=== PATIENT | female | born 2005 | race African-American/Black ===

== ENCOUNTER 2024-05-25 09:45 | Emergency (ER) | payer OTHER ==
[~2024-05-25] VITALS: Ht 162.6 cm; Wt 116.2 kg
[2024-05-25 10:11] VITALS: BP 136/92; PULSE 88; RESP 16; TEMP 98; O2SAT 100
[2024-05-25] MEDS ORDERED: OLOP0.1S7 OP (10:22)
[2024-05-25] MEDS ORDERED: LACT10SO3 PO (10:22)
[2024-05-25] MEDS ORDERED: PRED20TA2 PO (10:22)
== END 2024-05-25 10:28 | disposition home or self-care (01) ==
LOC: ER 09:45
DX: H10.13 Acute atopic conjunctivitis, bilateral (principal); K59.00 Constipation, unspecified; Z79.899 Other long term (current) drug therapy

== ENCOUNTER 2024-06-19 08:22 | Emergency (ER) | payer MEDICAID, OTHER ==
[~2024-06-19] VITALS: Ht 167.6 cm; Wt 114.2 kg
[~2024-06-19 08:22] MED LIST: LACT10SO3 PO; OLOP0.1S7 OP; PRED20TA2 PO
[2024-06-19 08:54] VITALS: BP 120/70; PULSE 86; RESP 18; TEMP 97.4; O2SAT 100
[2024-06-19] MEDS ORDERED: AUG875T PO (09:07)
[2024-06-19] MEDS ORDERED: POLY335015 PO (09:07)
[2024-06-19] MEDS ORDERED: SIME1CAP12 PO (09:07)
[2024-06-19] MEDS ORDERED: FAMO20TA10 PO (09:07)
[2024-06-19] MEDS ORDERED: POLY1DRO14 OP (09:07)
== END 2024-06-19 09:24 | disposition home or self-care (01) ==
LOC: ER 08:22
DX: K59.00 Constipation, unspecified (principal); R10.13 Epigastric pain

== ENCOUNTER 2024-08-02 07:32 | Emergency (ER) | payer MEDICAID ==
[~2024-08-02] VITALS: Ht 167.6 cm; Wt 78.0 kg
[~2024-08-02 07:32] MED LIST changes: +AUG875T PO; +FAMO20TA10 PO; +POLY1DRO14 OP; +POLY335015 PO; +SIME1CAP12 PO
[2024-08-02 08:14] VITALS: BP 125/67; PULSE 107; RESP 18; TEMP 98.2; O2SAT 100
--- NOTE | 2024-08-02 08:20 | ED.PDOC ---
IT SECURITY ADMINISTRATOR HPI Comments A 18 YEAR OLD FEMALE PRESENTS TO THE ED WITH COMPLAINT OF VAGINAL DISCHARGE. PATIENT STATES SHE HAS BEEN EXPERIENCING VAGINAL DISCHARGE THAT IS WHITE IN COLOR AND PAINFUL URINATION FOR THE PAST 1 WEEK. PATIENT DENIES HEMATURIA, FLANK PAIN, FEVER, CHILLS, SHORTNESS OF BREATH, CHEST PAIN, ABDOMINAL PAIN, NAUSEA, VOMITING, HEADACHE, OR OTHER COMPLAINTS. NO OTHER SYMPTOMS OR MODIFYING FACTORS AT THIS TIME. PATIENT IS ALERT, ORIENTED X 4, AND HAS STEADY GAIT. Chief Complaint: Vaginal Discharge Reviewed Notes: Nurses Notes, Medications, Allergies Allergies: Coded Allergies: NO KNOWN ALLERGIES (Unverified , 05/25/24) Home Meds Active Scripts Polyethylene Glycol-Propylene (Lubricating Eye Drops 0.4-0.3 %) 1 Elliott Elliott, 1 ELLIOTT OP UD for 30 Days, #1 KIT 0 Refills Prov:ROBBIE ROOT NP 06/19/24 Amoxicillin & Pot Clavulanate (AUGMENTIN TABLET) 875 Mg Tb, 875 MG PO BID for 7 Days, #14 TAB 0 Refills Prov:ROBBIE ROOT NP 06/19/24 Polyethylene Glycol 3350 (Miralax) 17 Gm Pow, 17 GM PO BID for 30 Days, #1 KIT 0 Refills Prov:ROBBIE ROOT NP 06/19/24 Famotidine (PEPCID TABLET) 20 Mg Tb, 1 TAB PO BIDP PRN for 30 Days, #60 TAB 0 Refills Prov:IVETTROBBIE F COMPUTER SCIENTIST 06/19/24 Simethicone (SIMETHICONE) 180 Mg Cap, 180 MG PO UD for 10 Days, #40 CAP 0 Refills Prov:ROBBIE ROOT NP 06/19/24 Lactulose (Lactulose) 10 Gm/15 Ml [place], 30 ML PO BID, #180 ML Prov:PRESLEY HILL 05/25/24 Prednisone (Prednisone) 20 Mg Tab, 60 MG PO DAILY for 6 Days, #18 TAB Prov:PRESLEY HILL 05/25/24 Olopatadine HCl (Pataday) 0.1 % [place], 1 DROP OP DAILY, #5 ML Prov:PRESLEY HILL 05/25/24 Information Source: Patient Mode of Arrival: Ambulatory Timing: Days Prehospital treatment: None Severity: Moderate Vaginal Discharge: White Vaginal Lesions: None Vaginal Mass: None Onset Of Mass/Bleeding: Spontaneous Sexual Activity: Neither Last Consensual [place]: Unknown Control: None Blood Type: Unknown Symptoms of Possible : None Associated Signs and Symptoms: Vaginal Discharge Past Medical History PAST MEDICAL HISTORY: Denies Surgical History: Denies all surgeries VETERINARY TECHNOLOGY INSTRUCTOR History: No Pertinent VETERINARY TECHNOLOGY INSTRUCTOR History Family History Family History: Reviewed,noncontributory to illness Social History Smoker: Non-Smoker Alcohol: Denies ETOH Use Drugs: Denies Drug Use Lives In: Home Constitutional: denies: chills, diaphoresis, fatigue, fever, malaise, sweats, weakness, others EENTM: denies: blurred vision, double vision, ear bleeding, ear discharge, ear drainage, ear pain, ear ringing, eye pain, eye redness, hearing loss, mouth pain, mouth swelling, nasal discharge, nose bleeding, nose congestion, nose pain, photophobia, tearing, throat pain, throat swelling, voice changes, others Respiratory: denies: cough, hemoptysis, orthopnea, SOB at rest, shortness of breath, SOB with excertion, stridor, wheezing, others Cardiovascular: denies: chest pain, dizzy spells, diaphoresis, Dyspnea on exertion, edema, irregular heart beat, left arm pain, lightheadedness, palpitations, PND, syncope, others Gastrointestinal: denies: abdomen distended, abdominal pain, blood streaked bowels, constipated, diarrhea, dysphagia, difficulty swallowing, hematemesis, melena, nausea, poor appetite, poor fluid intake, rectal bleeding, rectal pain, vomiting, others Genitourinary: reports: burning, dysuria, vagina discharge; denies: abnormal vagina bleeding, dyspareunia, flank pain, frequency, hematuria, incontinence, pain, , urgency, others Neurological: denies: dizziness, fainting, headache, left sided numbness, left sided weakness, numbness, paresthesia, pre-existing deficit, right sided numbness, right sided weakness, seizure, speech problems, tingling, tremors, weakness, others Musculoskeletal: denies: back pain, gout, joint pain, joint swelling, muscle pain, muscle stiffness, neck pain, others Integumetry: denies: bruises, change in color, change in hair/nails, dryness, laceration, lesions, lumps, rash, wounds, others Allergic/Immunocompromised: denies: Difficulty Healing, Frequent Infections, Hives, Itching, others Hematologic/Lymphatic: denies: anemia, blood clots, easy bleeding, easy bruising, swollen glands, others Endocrine: denies: excessive hunger, excessive sweating, excessive thirst, excessive urination, flushing, intolerance to cold, intolerance to heat, unexplained weight gain, unexplained weight loss, others Psychiatric: denies: anxiety, bipolar disorder, depression, hopeless, panic disorder, schizophrenia, sleepless, suicidal, others All Other Systems: Reviewed and Negative Was a procedure done? Was a procedure done?: No Differential Diagnosis (VETERINARY TECHNOLOGY INSTRUCTOR) Vaginal Bleeding: N/A Mass / Lesion: N/A Vaginal Discharge: UTI, Vaginitis - Bacterial, Vaginitis - Candidal, Vaginitis - Trichomonas X-Ray, Labs, Meds, VS Vital Signs Date Time Temp Pulse Resp B/P (MAP) Pulse Ox O2 Delivery O2 Flow Rate FiO2 08/02/24 08:14 107 18 100 Room Air 08/02/24 08:14 98.2 107 18 125/67 (86) 100 98.2 08/02/24 07:43 98.0 86 18 126/78 (94) 99 X-Ray, Labs, Meds, VS Comment LABS ORDERED: UA, URINE , WET MOUNT REVIEWED AND INTERPRETED RESULTS: Reevaluation 1ST: Improved Patient Education/Counseling: Diagnosis, Treatment, Need For Follow Up Family Education/Counseling: Diagnosis, Treatment, Need For Follow Up Departure 1 Departure Disposition: 01 HOME / SELF CARE / HOMELESS Condition: Stable Discharged With: Self Critical Care Note Critical Care Time?: No Stability Stability form required: No I personally scribed for PRESLEY HILL ([email or web address]) on 08/02/24 at 08:20. Electronically submitted by Daniel Kraft ([email or web address]). I personally scribed for PRESLEY HILL ([email or web address]) on 08/02/24 at 08:37. Electronically submitted by Daniel Kraft ([email or web address]). PRESLEY HILL Aug 02, 2024 08:20
[2024-08-02] MEDS ORDERED: cefTRIAXone SOD 1,000 MG VL IM ONE (08:30)
--- NOTE | 2024-08-02 08:42 | ED.PDOC ---
Musculoskeletal HPI Comments A 18 YEAR OLD FEMALE PRESENTS TO THE ED WITH COMPLAINT OF LEFT SHOULDER PAIN THAT RADIATES DOWN LEFT ARM AND CONSTIPATION. PATIENT STATES SHE HAS BEEN EXPERIENCING LEFT SHOULDER PAIN THAT RADIATES DOWN HER LEFT ARM OFF AND ON FOR THE PAST FEW MONTHS WITH HER PAIN RETURNING AGAIN YESTERDAY. PATIENT NOTES SHE HAS ALSO BEEN EXPERIENCING CONSTIPATION DUE TO TAKING IRON SUPPLEMENTS FOR THE PAST FEW DAYS. PATIENT DENIES FEVER, CHILLS, SHORTNESS OF BREATH, CHEST PAIN, ABDOMINAL PAIN, NAUSEA, VOMITING, HEADACHE, OR OTHER COMPLAINTS. NO OTHER SYMPTOMS OR MODIFYING FACTORS AT THIS TIME. PATIENT IS ALERT, ORIENTED X 4, AND HAS STEADY GAIT. Chief Complaint: Upper Extremity Time Seen by MD: 07:44 Primary Care Provider: UNKNOWN Reviewed Notes: Nurses Notes, Medications, Allergies Allergies: Coded Allergies: NO KNOWN ALLERGIES (Unverified , 05/25/24) Home Meds Active Scripts Polyethylene Glycol-Propylene (Lubricating Eye Drops 0.4-0.3 %) 1 Elliott Elliott, 1 ELLIOTT OP UD for 30 Days, #1 KIT 0 Refills Prov:ROBBIE ROOT BAILIFF 06/19/24 Amoxicillin & Pot Clavulanate (AUGMENTIN TABLET) 875 Mg Tb, 875 MG PO BID for 7 Days, #14 TAB 0 Refills Prov:IVETTROBBIE Juan Manuel BAILIFF 06/19/24 Polyethylene Glycol 3350 (Miralax) 17 Gm Pow, 17 GM PO BID for 30 Days, #1 KIT 0 Refills Prov:IVETTROBBIE F BAILIFF 06/19/24 Famotidine (PEPCID TABLET) 20 Mg Tb, 1 TAB PO BIDP PRN for 30 Days, #60 TAB 0 Refills Prov:ROBBIE ROOT BAILIFF 06/19/24 Simethicone (SIMETHICONE) 180 Mg Cap, 180 MG PO UD for 10 Days, #40 CAP 0 Refills Prov:ROBBIE ROOT BAILIFF 06/19/24 Lactulose (Lactulose) 10 Gm/15 Ml [place], 30 ML PO BID, #180 ML Prov:PRESLEY HILL 05/25/24 Prednisone (Prednisone) 20 Mg Tab, 60 MG PO DAILY for 6 Days, #18 TAB Prov:PRESLEY HILL 05/25/24 Olopatadine HCl (Pataday) 0.1 % [place], 1 DROP OP DAILY, #5 ML Prov:PRESLEY HILL 05/25/24 Information Source: Patient Mode of Arrival: Ambulatory Location: Left Extremity Location: Arm, Shoulder Timing: Days Prehospital treatment: None Severity: Moderate Able to Move Extremity: Yes Bear Weight: Fully Pain: Moderate Mechanism: No Trauma, Spontaneous Circumstances: Spontaneous Onset of Symptoms: Spontaneous Symptoms: Pain DVT Risk Factors: NONE Last Tetanus: UTD Associated signs and symptoms: Shoulder pain, Arm pain Past Medical History PAST MEDICAL HISTORY: Anemia Surgical History: Denies all surgeries CATTLE TRADER History: No Pertinent CATTLE TRADER History Family History Family History: Reviewed,noncontributory to illness Social History Smoker: Non-Smoker Alcohol: Denies ETOH Use Drugs: Denies Drug Use Lives In: Home Constitutional: denies: chills, diaphoresis, fatigue, fever, malaise, sweats, weakness, others EENTM: denies: blurred vision, double vision, ear bleeding, ear discharge, ear drainage, ear pain, ear ringing, eye pain, eye redness, hearing loss, mouth pain, mouth swelling, nasal discharge, nose bleeding, nose congestion, nose pain, photophobia, tearing, throat pain, throat swelling, voice changes, others Respiratory: denies: cough, hemoptysis, orthopnea, SOB at rest, shortness of breath, SOB with excertion, stridor, wheezing, others Cardiovascular: denies: chest pain, dizzy spells, diaphoresis, Dyspnea on exertion, edema, irregular heart beat, left arm pain, lightheadedness, palpi tations, PND, syncope, others Gastrointestinal: reports: constipated; denies: abdomen distended, abdominal pain, blood streaked bowels, diarrhea, dysphagia, difficulty swallowing, hematemesis, melena, nausea, poor appetite, poor fluid intake, rectal bleeding, rectal pain, vomiting, others Genitourinary: denies: abnormal vagina bleeding, burning, dyspareunia, dysuria, flank pain, frequency, hematuria, incontinence, pain, , vagina discha rge, urgency, others Neurological: denies: dizziness, fainting, headache, left sided numbness, left sided weakness, numbness, paresthesia, pre-existing deficit, right sided numbness, right sided weakness, seizure, speech problems, tingling, tremors, weakness, others Musculoskeletal: reports: others (LEFT SHOULDER PAIN THAT RADIATES DOWN LEFT ARM); denies: back pain, gout, joint pain, joint swelling, muscle pain, muscle stiffness, neck pain Integumetry: denies: bruises, change in color, change in hair/nails, dryness, laceration, lesions, lumps, rash, wounds, others Allergic/Immunocompromised: denies: Difficulty Healing, Frequent Infections, Hives, Itching, others Hematologic/Lymphatic: denies: anemia, blood clots, easy bleeding, easy bruising, swollen glands, others Endocrine: denies: excessive hunger, excessive sweating, excessive thirst, excessive urination, flushing, intolerance to cold, intolerance to heat, unexplained weight gain, unexplained weight loss, others Psychiatric: denies: anxiety, bipolar disorder, depression, hopeless, panic disorder, schizophrenia, sleepless, suicidal, others All Other Systems: Reviewed and Negative Physical Exam General Appearance: No Apparent Distress, Normal HEENT: Normal ENT Inspection, PERRL/EOMI, Pharynx Normal, TMs Normal Neck: Full Range of Motion, Non-Tender, Normal, Normal Inspection Respiratory: Chest Non-Tender, Lungs Clear, No Accessory Muscle Use, No Respiratory Distress, Normal Breath Sounds Cardiovascular: No Edema, No JVD, No Murmur, No Gallop, Normal Peripheral Pulses, Regular Rate/Rhythm Breast Exam: Deferred Gastrointestinal: No Organomegaly, Non Tender, No Pulsatile Mass, Normal Bowel Sounds, Soft Genitalia: Deferred Pelvic: Deferred Rectal: Deferred Extremities: No calf tenderness, Normal capillary refill, Normal inspection, Normal range of motion, No pedal edema, Tender (LEFT SHOULDER, NO BONY TENDERNESS, SWELLING AND DEFORMITY. ) Musculoskeletal : Apperance: Normal Neurologic: Alert, senior cost accountant II-XII nml as Tested, No Motor Deficits, Normal Affect, Normal Mood, No Sensory Deficits Cerebellar Function: Normal Reflexes: Normal Skin: Dry, Normal Color, Warm Peripheral Pulses: 2+ carotid (R), 2+ carotid (L) Lymphatic: No Adenopathy Was a procedure done? Was a procedure done?: No Differential Diagnosis EXT Differential Diagnosis: Sprain, DJD, Strain Other Differential Diagnosis CONSTIPATION, MUSCLE SPASM X-Ray, Labs, Meds, VS Vital Signs Date Time Temp Pulse Resp B/P (MAP) Pulse Ox O2 Delivery O2 Flow Rate FiO2 08/02/24 08:14 107 18 100 Room Air 08/02/24 08:14 98.2 107 18 125/67 (86) 100 98.2 08/02/24 07:43 98.0 86 18 126/78 (94) 99 CLINICAL INDICATION: Pain, trauma TECHNIQUE: 3 radiographic views of the left shoulder were obtained. Comparison: None FINDINGS/IMPRESSION: There is no evidence of acute fracture or dislocation. The visualized joint space is well maintained. The alignment is anatomical. There is no radiopaque foreign body. ATED BY: WILL LIMA MD DICTATED DATE/TIME: 08/02/24917 SIGNED BY: WILL LIMA MD SIGNED DATE/TIME: 08/02/24917 CC: Date: 08/02/2024 08:39 AM Examination: XY KUB ABDOMEN SINGLE VIEW History: CONSTIPATION Comparison: None TECHNIQUE: Frontal views of the abdomen was obtained. FINDINGS: Bowel gas pattern is unremarkable. Moderate stool burden. The lung bases are unremarkable. No acute osseous abnormality identified. IMPRESSION: Nonobstructive bowel gas pattern. Moderate stool burden. ATED BY: WILL LIMA MD DICTATED DATE/TIME: 08/02/24917 SIGNED BY: WILL LIMA MD SIGNED DATE/TIME: 08/02/24917 CC: Images Reviewed?: Images reviewed and evaluated by me Time of 1ST Reevaluation: 09:33 Reevaluation 1ST: Improved Patient Education/Counseling: Diagnosis, Treatment, Need For Follow Up Family Education/Counseling: Diagnosis, Treatment, Need For Follow Up Medical Screening: No EMC Exist At This Time Departure 1 Departure Time of Disposition: 09:34 Impression: Primary Impression: Internal derangement of left shoulder Additional Impression: Acute constipation Disposition: 01 HOME / SELF CARE / HOMELESS Condition: Stable Additional Instructions: FOLLOW-UP WITH PCP IN 1 TO 2 DAYS. TAKE MEDICATIONS PRESCRIBED. RETURN TO ED FOR ANY NEW OR WORSENING SYMPTOMS. e-Prescriptions Docusate Sodium (Colace) 100 Mg Cap 1 CAP PO BID, #40 CAP Prov: PRESLEY HILL 08/02/24 Acetaminophen (Tylenol 8 Hour Arthritis) 650 Mg Tab 650 MG PO TID, #30 TAB Prov: PRESLEY HILL 08/02/24 Discharged With: Self Critical Care Note Critical Care Time?: No Stability Stability form required: No I personally scribed for PRESLEY HILL ([email or web address]) on 08/02/24 at 08:42. Electronically submitted by Daniel Kraft ([email or web address]). I personally scribed for PRESLEY HILL ([email or web address]) on 08/02/24 at 09:21. Electronically submitted by Daniel Kraft ([employer]). I personally scribed for PRESLEY HILL ([email or web address]) on 08/02/24 at 09:22. Electronically submitted by Daniel Kraft ([employer]). PRESLEY HILL Aug 02, 2024 08:42
--- NOTE | 2024-08-02 09:19 | DVH ---
Date: 08/02/2024 08:39 AM Examination: XY KUB ABDOMEN SINGLE VIEW History: CONSTIPATION Comparison: None TECHNIQUE: Frontal views of the abdomen was obtained. FINDINGS: Bowel gas pattern is unremarkable. Moderate stool burden. The lung bases are unremarkable. No acute osseous abnormality identified. IMPRESSION: Nonobstructive bowel gas pattern. Moderate stool burden.
--- NOTE | 2024-08-02 09:20 | DVH ---
CLINICAL INDICATION: Pain, trauma TECHNIQUE: 3 radiographic views of the left shoulder were obtained. Comparison: None FINDINGS/IMPRESSION: There is no evidence of acute fracture or dislocation. The visualized joint space is well maintained. The alignment is anatomical. There is no radiopaque foreign body.
[2024-08-02] MEDS ORDERED: ACET-1080 PO (09:34)
[2024-08-02] MEDS ORDERED: DOCU-94 PO (09:34)
== END 2024-08-02 09:37 | disposition home or self-care (01) ==
LOC: ER 07:32
DX: M24.812 Other specific joint derangements of left shoulder, not elsewhere classified (principal); K59.09 Other constipation; Z79.52 Long term (current) use of systemic steroids
CPT/HCPCS: 73030; 74018; J0696

== ENCOUNTER 2025-04-07 13:09 | Emergency (ER) | payer MEDICAID ==
[~2025-04-07 13:09] MED LIST changes: +ACET-1080 PO; +DOCU-94 PO
== END 2025-04-07 14:07 | disposition left against medical advice (07) ==
LOC: ER 13:14
DX: R51.9 Headache, unspecified (principal); Z53.21 Procedure and treatment not carried out due to patient leaving prior to being seen by health care provider

== ENCOUNTER 2025-06-11 08:42 | Emergency (ER) | payer MEDICAID ==
[~2025-06-11] VITALS: Ht 167.6 cm; Wt 112.0 kg
--- NOTE | 2025-06-11 09:19 | ED.PDOC ---
MUSHR[employer]PAWN [employer]KER HPI Comments A 19 YEAR OLD FEMALE PRESENTS TO THE ED WITH COMPLAINT OF VAGINAL DISCHARGE. PATIENT REPORTS THAT SHE HAD UNPROTECTED SEX LAST WEEK AND IS NOW EXPERIENCING VAGINAL DISCHARGE WITH ASSOCIATED ITCHINESS AND BURNING SENSATION. PATIENT REQUESTS AN STI SCREENING AND TEST AT THIS TIME. PATIENT DENIES VAGINAL BLEEDING, DYSURIA, HEMATURIA, SHORTNESS OF BREATH, CHEST PAIN, ABDOMINAL PAIN, NAUSEA, VOMITING, HEADACHE, OR OTHER COMPLAINTS. NO OTHER SYMPTOMS OR MODIFYING FACTORS AT THIS TIME. PATIENT IS ALERT, ORIENTED X 4, AND HAS STEADY GAIT. Chief Complaint: Vaginal Discharge Time Seen by MD: 09:16 Reviewed Notes: Nurses Notes, Medications, Allergies Allergies: Coded Allergies: NO KNOWN ALLERGIES (Unverified , 05/25/24) Home Meds Active Scripts Docusate Sodium (Colace) 100 Mg Cap, 1 CAP PO BID, #40 CAP Prov:PRESLEY HILL 08/02/24 Acetaminophen (Tylenol 8 Hour Arthritis) 650 Mg Tab, 650 MG PO TID, #30 TAB Prov:PRESLEY HILL 08/02/24 Polyethylene Glycol-Propylene (Lubricating Eye Drops 0.4-0.3 %) 1 Elliott Elliott, 1 ELLIOTT OP UD for 30 Days, #1 KIT 0 Refills Prov:ROBBIE [employer] WORKER 06/19/24 Amoxicillin & Pot Clavulanate (AUGMENTIN TABLET) 875 Mg Tb, 875 MG PO BID for 7 Days, #14 TAB 0 Refills Prov:ROBBIE [employer] WORK[employer] 06/19/24 Polyethylene Glycol 3350 (Miralax) 17 Gm Pow, 17 GM PO BID for 30 Days, #1 KIT 0 Refills Prov:ROBBIE [employer] WORK[employer] 06/19/24 Famotidine (PEPCID TABLET) 20 Mg Tb, 1 TAB PO BIDP PRN for 30 Days, #60 TAB 0 Refills Prov:ROBBIE [employer] WORK[employer] 06/19/24 Simethicone (SIMETHICONE) 180 Mg Cap, 180 MG PO UD for 10 Days, #40 CAP 0 Refills Prov:ROBBIE [employer] 06/19/24 Lactulose (Lactulose) 10 Gm/15 Ml [place], 30 ML PO BID, #180 ML Prov:PRESLEY HILL 05/25/24 Prednisone (Prednisone) 20 Mg Tab, 60 MG PO DAILY for 6 Days, #18 TAB Prov:PRESLEY HILL 05/25/24 Olopatadine HCl (Pataday) 0.1 % [place], 1 DROP OP DAILY, #5 ML Prov:PRESLEY HILL 05/25/24 Information Source: Patient Mode of Arrival: Ambulatory Timing: Weeks Prehospital treatment: None Severity: Moderate Vaginal Discharge: White, Fishy Last Consensual [place]: Weeks Control: None Associated Signs and Symptoms: Vaginal Discharge Past Medical History PAST MEDICAL HISTORY: Anemia, Denies Surgical History: Denies all surgeries NOTCHING PRESS OPERATOR History: No Pertinent NOTCHING PRESS OPERATOR History Family History Family History: Reviewed,noncontributory to illness Social History Smoker: Non-Smoker Alcohol: Denies ETOH Use Drugs: Denies Drug Use Lives In: Home Constitutional: denies: chills, diaphoresis, fatigue, fever, malaise, sweats, weakness, others EENTM: denies: blurred vision, double vision, ear bleeding, ear discharge, ear drainage, ear pain, ear ringing, eye pain, eye redness, hearing loss, mouth pain, mouth swelling, nasal discharge, nose bleeding, nose congestion, nose pain, photophobia, tearing, throat pain, throat swelling, voice changes, others Respiratory: denies: cough, hemoptysis, orthopnea, SOB at rest, shortness of breath, SOB with excertion, stridor, wheezing, others Cardiovascular: denies: chest pain, dizzy spells, diaphoresis, Dyspnea on exertion, edema, irregular heart beat, left arm pain, lightheadedness, palp itations, PND, syncope, others Gastrointestinal: denies: abdomen distended, abdominal pain, blood streaked bowels, constipated, diarrhea, dysphagia, difficulty swallowing, hematemesis, melena, nausea, poor appetite, poor fluid intake, rectal bleeding, rectal pain, vomiting, others Genitourinary: reports: burning, vagina discharge; denies: abnormal vagina bleeding, dyspareunia, dysuria, flank pain, frequency, hematuria, incontinence, pain, , urgency, others Neurological: denies: dizziness, fainting, headache, left sided numbness, left sided weakness, numbness, paresthesia, pre-existing deficit, right sided numbness, right sided weakness, seizure, speech problems, tingling, tremors, weakness, others Musculoskeletal: denies: back pain, gout, joint pain, joint swelling, muscle pain, muscle stiffness, neck pain, others Integumetry: denies: bruises, change in color, change in hair/nails, dryness, laceration, lesions, lumps, rash, wounds, others Allergic/Immunocompromised: reports: Itching; denies: Difficulty Healing, Frequent Infections, Hives, others Hematologic/Lymphatic: denies: anemia, blood clots, easy bleeding, easy bruising, swollen glands, others Endocrine: denies: excessive hunger, excessive sweating, excessive thirst, excessive urination, flushing, intolerance to cold, intolerance to heat, unexplained weight gain, unexplained weight loss, others Psychiatric: denies: anxiety, bipolar disorder, depression, hopeless, panic disorder, schizophrenia, sleepless, suicidal, others All Other Systems: Reviewed and Negative Physical Exam General Appearance: No Apparent Distress, Obese HEENT: Normal ENT Inspection, PERRL/EOMI, Pharynx Normal, TMs Normal Neck: Full Range of Motion, Non-Tender, Normal, Normal Inspection Respiratory: Chest Non-Tender, Lungs Clear, No Accessory Muscle Use, No Respiratory Distress, Normal Breath Sounds Cardiovascular: No Edema, No JVD, No Murmur, No Gallop, Normal Peripheral Pulses, Regular Rate/Rhythm Breast Exam: Deferred Gastrointestinal: No Organomegaly, Non Tender, No Pulsatile Mass, Normal Bowel Sounds, Soft Genitalia: Deferred Pelvic: Discharge (MILD YELLOW AND WHITE VAGINAL DISCHARGE. ) Rectal: Deferred Extremities: No calf tenderness, Normal capillary refill, Normal inspection, Normal range of motion, Non-tender, No pedal edema Musculoskeletal : Apperance: Normal Neurologic: Alert, windmill technician II-XII nml as Tested, No Motor Deficits, Normal Affect, Normal Mood, No Sensory Deficits Cerebellar Function: Normal Reflexes: Normal Skin: Dry, Normal Color, Warm Peripheral Pulses: 2+ carotid (R), 2+ carotid (L) Lymphatic: No Adenopathy Was a procedure done? Was a procedure done?: No Differential Diagnosis (NOTCHING PRESS OPERATOR) Vaginal Discharge: , UTI, Vaginitis - Bacterial, Vaginitis - Candidal X-Ray, Labs, Meds, VS Vital Signs Date Time Temp Pulse Resp B/P (MAP) Pulse Ox O2 Delivery O2 Flow Rate FiO2 06/11/25 08:44 97.7 67 20 124/70 98 97.7 Lab Test 06/11/25 09:19 06/11/25 09:15 Range/Units Vaginal WBC (Wet Prep) Rare Vaginal RBC (Wet Prep) None seen Vaginal Epithelial Cells (Wet Prep) Few Vaginal Bacteria (Wet Prep) Few Vaginal Trichomonas (Wet Prep) Not present Vaginal Yeast (Wet Prep) None seen Vaginal Clue Cells (Wet Prep) None seen Urine Color Light-yellow Yellow Urine Clarity Clear Clear Urine pH 7.0 5.0-9.0 Urine Specific [place] 1.017 1.001-1.035 Urine Protein Negative Negative Urine Ketones Negative Negative Urine Blood 1+ H Negative /uL Urine Nitrite Negative Negative Urine Bilirubin Negative Negative Urine Urobilinogen Normal Negative mg/dL Urine Leukocyte Esterase Negative Negative /uL Urine RBC 1 0 - 4 /hpf Urine Microscopic WBC 1 0-5 /HPF Urine Squamous Epithelial Cells Few <5 /hpf Urine Bacteria None seen None Seen /hpf Urine Glucose Normal Normal mg/dL Urine Test Negative Negative Chlamydia trachomatis (MARYANA) Pending Neisseria gonorrhoeae (MARYANA) Pending X-Ray, Labs, Meds, VS Comment EXTERNAL MEDICAL RECORDS REVIEWED: [NONE] INDEPENDENT HISTORIANS: [NONE] SOCIAL DETERMINANTS OF HEALTH: [NONE] LABS ORDERED: NONE REVIEWED AND INTERPRETED RESULTS: NONE IMAGING ORDERED: NONE TREATMENTS ORDERED: NO PROCEDURES PERFORMED: NONE CRITICAL CARE TIME: NONE I HAVE DISCUSSED THE PATIENT WITH THE ATTENDING PHYSICIAN, DR. MURILLO, HE AGREES WITH THE PATIENT'S PLAN OF CARE AND DISPOSITION. BASED ON HISTORY OF PRESENT ILLNESS, AND PHYSICAL EXAM, PATIENT WILL BE DISCHARGED HOME. DISCUSSED PLAN FOR DISCHARGE HOME WITH RX [FLAGYL]. MEDICATION WARNINGS GIVEN. SHARED DECISION MAKING: DISCUSSED WITH PATIENT THAT THEIR WORKUP WAS NORMAL. PATIENT INSTRUCTED TO FOLLOW UP WITH PRIMARY CARE PROVIDER IN 1-2 DAYS FOR RE- EVALUATION OF SYMPTOMS. PATIENT VERBALIZES UNDERSTANDING TO RETURN TO ED FOR NEW OR WORSENING SYMPTOMS OR IF FOLLOW UP WITH PCP CANNOT BE OBTAINED. PATIENT FEELS COMFORTABLE GOING HOME AT THIS TIME. ALL QUESTIONS ADDRESSED AT TIME OF DISCHARGE. Time of 1ST Reevaluation: 10:03 Reevaluation 1ST: Improved Patient Education/Counseling: Diagnosis, Treatment, Need For Follow Up Family Education/Counseling: Diagnosis, Treatment, No Family Present Medical Screening: No EMC Exist At This Time Departure 1 Departure Time of Disposition: 10:04 Impression: Primary Impression: Bacterial vaginitis Additional Impression: Routine screening for STI (sexually transmitted infection) Disposition: 01 HOME / SELF CARE / HOMELESS Condition: Stable Additional Instructions: FOLLOW-UP WITH PCP IN 1 TO 2 DAYS. TAKE MEDICATIONS PRESCRIBED. RETURN TO ED FOR ANY NEW OR WORSENING SYMPTOMS. e-Prescriptions Metronidazole (Flagyl) 500 Mg Tab 1 TAB PO BID, #14 TAB Prov: PRESLEY HILL 06/11/25 Discharged With: Self Critical Care Note Critical Care Time?: No Stability Stability form required: No Heart Score Heart Score: Heart Score Response (Comments) Value History N/A 0 EKG N/A 0 Age N/A 0 Risk Factors N/A 0 Troponin N/A 0 Total 0 I personally scribed for PRESLEY HILL ([email or web address]) on 06/11/25 at 09:19. Electronically submitted by Parrish Perry ([email or web address]). I personally scribed for PRESLEY HILL ([email or web address]) on 06/11/25 at 09:55. Electronically submitted by Parrish Perry ([email or web address]). PRESLEY HILL Jun 11, 2025 09:19
[2025-06-11 09:35] LABS: Vaginal Trichomonas Not Present
[2025-06-11 09:36] LABS: Vaginal Bacteria Few; Vaginal Clue Cells None Seen; Vaginal Epithelial Cells Few
[2025-06-11 09:37] LABS: Urine Protein, UAD Negative (Negative)
[2025-06-11 09:57] VITALS: BP 124/70; PULSE 67; RESP 20; TEMP 97.7; O2SAT 98
[2025-06-11] MEDS ORDERED: METR-344 PO (10:06)
[2025-06-12 15:07] LABS: Chlamydia Trachomatis, NAA Negative (Negative); Neisseria gonorrhoeae, NAA Negative (Negative)
== END 2025-06-11 10:11 | disposition home or self-care (01) ==
LOC: ER 08:42
DX: N76.0 Acute vaginitis (principal); B96.89 Other specified bacterial agents as the cause of diseases classified elsewhere; Z11.3 Encounter for screening for infections with a predominantly sexual mode of transmission; Z79.899 Other long term (current) drug therapy; Z86.2 Personal history of diseases of the blood and blood-forming organs and certain disorders involving the immune mechanism
CPT/HCPCS: 81001; 81025; 87210